=== PATIENT | male | born 1950 | race African-American/Black ===

== ENCOUNTER 2019-06-30 05:30 | Inpatient (IN) | payer MEDICARE ==
--- NOTE | 2019-06-28 15:32 | Diagnostic Imaging Report ---
Chest, PA and lateral. History: Preoperative evaluation for prostate surgery. Comparison: None available. Discussion: The cardiomediastinal silhouette and pulmonary vasculature are within normal limits. The lungs are clear without evidence of consolidation or effusion. There are no acute osseous abnormalities. IMPRESSION: No acute cardiopulmonary abnormality. Signed by: Torrey Gross MD on 06/28/2019 3:28 PM
[2019-06-28 15:33] LABS: BASOPHILS # (AUTO) 0.1 (0.0-0.1); EOSINOPHILS # (AUTO) 0.1 (0.0-0.4); EOSINOPHILS % 1.6 % (0.0-6.0); HEMOGLOBIN 12.2 g/dL (14.0-18.0); LYMPHOCYTES # (AUTO) 2.3 (1.0-3.2); LYMPHOCYTES % 36.5 % (18.0-39.1); MEAN CORPUSCULAR HEMOGLOBIN 31.1 pg (28-32); MEAN CORPUSCULAR HGB CONC 33.9 g/dL (31-35); MEAN CORPUSCULAR VOLUME 91.8 fL (81-99); MONOCYTES # (AUTO) 0.7 (0.2-0.8); MONOCYTES % 11.9 % (4.4-11.3); NEUTROPHILS # (AUTO) 3.1 (2.1-6.9); NEUTROPHILS % 48.8 % (38.7-80.0); PLATELET COUNT 205 x10e3/uL (140-360); RED BLOOD COUNT 3.92 x10e6/uL (4.3-5.7)
[2019-06-28 15:51] LABS: ANION GAP 11.9 mmol/L (8-16); BLOOD UREA NITROGEN 12 mg/dL (7-26); BUN/CREATININE RATIO 11 (6-25); CALCIUM 9.7 mg/dL (8.4-10.2); CARBON DIOXIDE 28 mmol/L (22-29); CHLORIDE 106 mmol/L (98-107); CREATININE, SERUM 1.12 mg/dL (0.72-1.25); EST GLOMERULAR FILTRATION RATE > 60 ML/MIN (60-); GLUCOSE 92 mg/dL (74-118); POTASSIUM 3.9 mmol/L (3.5-5.1); SODIUM 142 mmol/L (136-145)
[~2019-06-30] VITALS: Ht 182.9 cm; Wt 90.7 kg
[2019-06-30] VITALS (12 sets, daily range): BP systolic 104–124; BP diastolic 59–75
[~2019-06-30 05:30] MED LIST: DIOVAN160 MG PO; DOXYCYCLINE HY100 MG PO; FINASTERIDE5 MG PO; FLOMAX0.4 MG PO
--- OUTSIDE RECORDS SUMMARY | 2019-06-30 05:35 | XMS REPORT ---
Author Author [facility] Address Unknown Phone Unavailable Care Team Providers Care Supervising Architect Name Role Phone MT PAPPAS Unavailable Unavailable Problems This patient has no known problems. Allergies, Adverse Reactions, Alerts This patient has no known allergies or adverse reactions. Medications This patient has no known medications. Encounters Start Date/Time End Date/Time Encounter Type Admission Type Attending Clinicians Care Facility Care Department Encounter ID 2019-05-07 20:53:00 2019-05-07 15:47:00 Inpatient [facility] [id number] Results Test Description Test Time Test Comments Text Results Atomic Results Result Comments CHEST 2 VIEWS 2019-06-28 15:28:00 [place] [id number] Patient Name: ALEC GOEL MR #: [id number] : 1950 Age/Sex: 69/M Req #: [id number] Adm Physician: Ordered by: MT PAPPAS MD Report #: [id number] Location: OR Room/Bed: Procedure: [id number] DX/CHEST 2 VIEWS Exam Date: 06/28/19 Exam Time: 1502 REPORT STATUS: Signed Chest, PA and lateral. History: Preoperative evaluation for prostate surgery. Comparison: None available. Discussion: The cardiomediastinal silhouette and pulmonary vasculature are within normal limits. The lungs are clear without evidence of consolidation or effusion. There are no acute osseous abnormalities. IMPRESSION: No acute cardiopulmonary abnormality. Signed by: Torrey Sepulveda MD on 06/28/2019 3:28 PM Dictated By: TORREY SEPLUVEDA MD 1528 Transcribed By: FRANCISCA on 06/28/19 1528 COPY TO: MT PAPPAS MD
[2019-06-30] MEDS ORDERED: VANCOMYCIN 1GM/NS 250 ML 250 ML ONE (06:02)
[2019-06-30] MEDS ORDERED: GENTAMICIN 80MG/NS 100 ML 100 ML IV ONE (06:02)
[2019-06-30] MEDS ORDERED: IOPAMIDOL 300MG/ML 50ML INFUS..BTL IV ONE (06:43)
[2019-06-30] MEDS ORDERED: B&O 60MG R/S 60 MG SUPP PR ONE (06:43)
[2019-06-30] MEDS ORDERED: ACETAMINOPHEN/CODEINE 300MG - 30MG TAB PO PRN (08:30)
[2019-06-30] MEDS ORDERED: DIPHENHYDRAMINE HCL 25 MG CAP PO PRN (08:30)
[2019-06-30] MEDS ORDERED: ACETAMINOPHEN 1000 MG/100 ML IV PRN (08:30)
[2019-06-30] MEDS ORDERED: B&O 60MG R/S 60 MG SUPP PR PRN (08:30)
[2019-06-30] MEDS ORDERED: ONDANSETRON HCL INJ 2MG/ML 2ML 2 MG/ML VIAL IV PRN (08:30)
[2019-06-30 09:07] LABS: BASOPHILS % 0.4 % (0.0-1.0); EOSINOPHILS # (AUTO) 0.1 (0.0-0.4); EOSINOPHILS % 1.5 % (0.0-6.0); HEMATOCRIT 35.9 % (38.2-49.6); HEMOGLOBIN 11.9 g/dL (14.0-18.0); LYMPHOCYTES # (AUTO) 1.7 (1.0-3.2); LYMPHOCYTES % 25.7 % (18.0-39.1); MEAN CORPUSCULAR HEMOGLOBIN 30.9 pg (28-32); MEAN CORPUSCULAR HGB CONC 33.1 g/dL (31-35); MEAN CORPUSCULAR VOLUME 93.2 fL (81-99); MONOCYTES # (AUTO) 0.4 (0.2-0.8); MONOCYTES % 5.6 % (4.4-11.3); NEUTROPHILS # (AUTO) 4.5 (2.1-6.9); NEUTROPHILS % 66.7 % (38.7-80.0); PLATELET COUNT 169 x10e3/uL (140-360); RED BLOOD COUNT 3.85 x10e6/uL (4.3-5.7); RED CELL DISTRIBUTION WIDTH 13.1 % (11.7-14.4)
[2019-06-30 09:35] LABS: ANION GAP 11.8 mmol/L (8-16); BLOOD UREA NITROGEN 13 mg/dL (7-26); BUN/CREATININE RATIO 12 (6-25); CALCIUM 8.7 mg/dL (8.4-10.2); CARBON DIOXIDE 22 mmol/L (22-29); CHLORIDE 109 mmol/L (98-107); CREATININE, SERUM 1.09 mg/dL (0.72-1.25); EST GLOMERULAR FILTRATION RATE > 60 ML/MIN (60-); GLUCOSE 108 mg/dL (74-118); POTASSIUM 3.8 mmol/L (3.5-5.1); SODIUM 139 mmol/L (136-145)
[2019-06-30] MEDS: DOCUSATE SODIUM 100 MG CAP PO SCH ×2 (12:01→16:51)
[2019-06-30] MEDS: PHENAZOPYRIDINE HCL 100 MG TAB PO SCH ×2 (12:01→16:51)
[2019-06-30] MEDS: D5.45%NS/KCL 20MEQ 1,000 ML IV SCH ×2 (12:08→16:51)
[2019-06-30] MEDS: GENTAMICIN 80MG/NS 100 ML 100 ML IV SCH ×2 (14:03→22:00)
[2019-06-30] MEDS ORDERED: PROPOFOL IV EMULSION 10 MG/ML 20 ML VIAL ONE (14:33)
[2019-06-30] MEDS ORDERED: DEXAMETHASONE SOD PHOS INJ 4 MG/ML VIAL ONE (14:33)
[2019-06-30] MEDS ORDERED: SEVOFLURANE INHAL SOLN 250 ML PEN BTL ONE (14:33)
[2019-06-30] MEDS ORDERED: LIDOCAINE HCL 2% LOCAL INJ 5 ML SDV VIAL INJ ONE (14:33)
[2019-06-30] MEDS ORDERED: ONDANSETRON HCL INJ 2MG/ML 2ML 2 MG/ML VIAL ONE (14:33)
[2019-06-30] MEDS ORDERED: FENTANYL CITRATE/PF 100MCG/2 ML INJ ONE (15:17)
[2019-06-30] MEDS ORDERED: MIDAZOLAM HCL 2 MG/2 ML VIAL ONE (15:17)
--- NOTE | 2019-06-30 21:32 | Operative Report ---
DATE OF PROCEDURE: 06/30/2019 SURGEON: Adal Gan MD PREOPERATIVE DIAGNOSES: 1. Obstructive benign prostatic hyperplasia. 2. Urinary tract infections. POSTOPERATIVE DIAGNOSES: 1. Obstructive benign prostatic hyperplasia. 2. Urinary tract infections. OPERATIONS PERFORMED: 1. Cystourethroscopy with bilateral ureteral catheterization and retrograde ureteropyelography (separate procedure performed for the urinary tract infections). 2. Interpretation of retrograde ureteropyelography. 3. Supervision of fluoroscopy, no radiologist present. 4. Cystourethroscopy with transurethral resection of the prostate utilizing the PlasmaBand electrode (separate staged procedure for the patient's severe obstructing benign prostatic hyperplasia). ANESTHESIA: General. COMPLICATIONS: None. CLINICAL SUMMARY: Gil Ivan is a complicated 69-year-old man. He has had a previous prostate biopsy in 2011, which was reportedly negative for cancer. The patient has had urinary retention of 1500 mL, but he did show bladder with signs of bladder function and detrusor contraction on urodynamic study. He is Bolden catheter dependent and despite this keeps having urinary tract infections. The patient was counseled about the fact during the time of coronavirus outbreak. He is at risk for developing a potentially life-threatening infection from the coronavirus. The patient, however, does not want to delay his surgery due to the fact that he has catheter discomfort from his chronic catheter and is concerned about his recurrent infections as well and except the coronavirus risk in order to proceed with surgery as planned. He understands the risks of incontinence, impotence, need for additional procedures and elected to proceed. OPERATIVE PROCEDURE IN DETAIL: Gil Ivan was properly identified, taken to the operating room, placed on the cystoscopy table in supine position. Anesthesia was uneventfully begun. Bolden catheter was removed. He was carefully gently repositioned in dorsal lithotomy position. All pressure points were padded. His genitalia were prepared and draped in usual sterile fashion. The cystoscope sheath with the visual obturator in place was atraumatically inserted into the patient's urethra and was guided down to unremarkable distal urethra through the normal sphincteric region through the prostate bed, which was significant for trilobar prostatic hypertrophy with kissing lateral lobes causing visual obstruction and a small median lobe. Panendoscopy of the bladder revealed trabeculations, but no tumors, no suspicious lesions, and no stones were identified. An 8-[place] catheter was used to cannulate each ureter and retrograde ureteropyelograms were performed. Interpretation of retrograde ureteropyelography contrast was instilled in retrograde fashion bilaterally. Again, there were no tumors, no stones, no diverticula. Unobstructed drainage was observed bilaterally fluoroscopically. Bilateral J hooking was noted. The resectoscope was atraumatically placed with obturator in place. We then utilized the PlasmaBand electrode to perform transurethral resection of the prostate. First, we limited the median lobe, then we worked on both lateral lobes from the bladder neck to maneuver past the verumontanum and down the surgical capsule. Multiple pockets of pus and purulent material were unroofed and irrigated free. This patient has rather severe chronic prostatitis and basically surgical findings. I must concur with the patient's decision of proceeding with surgery today despite the coronavirus outbreak. Pinpoint electrocautery was utilized to achieve hemostasis. All chips were evacuated, this was verified endoscopically. A continuous irrigation Bolden catheter was placed, irrigated to and fro to ensure it worked properly and placed in continuous irrigation with relatively clear efflux. A belladonna opium suppository was placed revealing a 50 g prostate, that was diffusely firm and exhibited diffuse nonspecific irregularity. No specific nodule could be palpated. The patient was then uneventfully reversed from anesthesia and taken to recovery room in stable condition. No complications to the procedure. He tolerated the procedure well. Will admit the patient for intravenous antibiotics. Postoperative care with irrigation and we will monitor his situation. Thankfully, the patient's hydronephrosis that was present upon his last urinary retention episode by CT has improved. Adal Gan MD OH/MODL /[id number]
[2019-07-01] VITALS (8 sets, daily range): BP systolic 111–139; BP diastolic 66–88
[2019-07-01] MEDS: D5.45%NS/KCL 20MEQ 1,000 ML IV SCH ×3 (01:19→16:27)
[2019-07-01] MEDS: GENTAMICIN 80MG/NS 100 ML 100 ML IV SCH ×3 (05:59→21:21)
--- NOTE | 2019-07-01 07:20 | NUR ---
RECEIVED PATIENT RESTING IN BED NO S/S OF DISTRESS. BED LOW, WHEELS LOCKED, SIDE RAILS X2. CALL LIGHT IN REACH WILL CONTINUE TO MONITOR PATIENT.
[2019-07-01] MEDS ORDERED: DOCUSATE SODIUM 100 MG CAP PO PRN (07:30)
--- NOTE | 2019-07-01 07:30 | NUR ---
H&P cc: urinary retention HPI: 69yoM, PCP , with urine retention due to BPH, here for elective TURP. Underwent procedure, recovering; PMH: BPH, urinary retention, HTN PSHx: hand Allergies; see emr FH/SH; ; no cigs meds; see MAR ROS: no f/c/s/N/V/D/CONLEY/cp/sob/skin rash/back pain/vision changes/focal limb weakness v/s; revd PE tired appearing anicteric ns1s2 mod bs soft nt nd no e/t skin dry n. affect a&ox3; mckeon labs/meds revd A/P: Urinary retention- s/p TURP BPH- s/p TURP HTN- home meds Overweight- caloric rescrition BMI 27.1- as above Prop:scd dispo: Glenn Green MD, PHD.
[2019-07-01 07:55] LABS: BASOPHILS % 0.4 % (0.0-1.0); EOSINOPHILS # (AUTO) 0.1 (0.0-0.4); EOSINOPHILS % 0.7 % (0.0-6.0); HEMATOCRIT 35.6 % (38.2-49.6); LYMPHOCYTES # (AUTO) 1.3 (1.0-3.2); LYMPHOCYTES % 19.4 % (18.0-39.1); MEAN CORPUSCULAR HEMOGLOBIN 30.8 pg (28-32); MEAN CORPUSCULAR HGB CONC 33.7 g/dL (31-35); MEAN CORPUSCULAR VOLUME 91.5 fL (81-99); MONOCYTES # (AUTO) 0.6 (0.2-0.8); MONOCYTES % 9.2 % (4.4-11.3); NEUTROPHILS # (AUTO) 4.7 (2.1-6.9); PLATELET COUNT 176 x10e3/uL (140-360); RED BLOOD COUNT 3.89 x10e6/uL (4.3-5.7)
[2019-07-01 08:13] LABS: BLOOD UREA NITROGEN 10 mg/dL (7-26); BUN/CREATININE RATIO 9 (6-25); CALCIUM 8.1 mg/dL (8.4-10.2); CARBON DIOXIDE 25 mmol/L (22-29); CHLORIDE 108 mmol/L (98-107); CREATININE, SERUM 1.07 mg/dL (0.72-1.25); EST GLOMERULAR FILTRATION RATE > 60 ML/MIN (60-); GLUCOSE 100 mg/dL (74-118); SODIUM 137 mmol/L (136-145)
[2019-07-01] MEDS: VALSARTAN 160 MG TAB PO SCH (09:00)
[2019-07-01] MEDS: FAMOTIDINE 20 MG TAB PO SCH ×2 (09:17→16:40)
[2019-07-01] MEDS: TAMSULOSIN HCL 0.4 MG CAP PO SCH (09:17)
[2019-07-01] MEDS: DOCUSATE SODIUM 100 MG CAP PO SCH ×2 (09:17→16:40)
[2019-07-01] MEDS: FINASTERIDE 5 MG TAB PO SCH (09:17)
[2019-07-01] MEDS: PHENAZOPYRIDINE HCL 100 MG TAB PO SCH ×3 (09:17→17:03)
--- NOTE | 2019-07-01 09:20 | NUR ---
ASSESSMENT: Spiritual concern Pt hopeful for improved health following procedure. Intervention: Provided hospitality, empathic listening and prayer. Provided information on how to reach special delivery clerk, if needed. Outcome: No need to follow at this time. PATIENCE CASTANEDA Director [facility] O: [phone]
--- NOTE | 2019-07-01 11:47 | NUR ---
NOTIFIED DR. PAPPAS OF PATIENTS TEMPERATURE 100.5, NEW ORDER FOR URINE CULTURE. NEW ORDERS IMPLEMENTED.
[2019-07-01] MEDS: ACETAMINOPHEN 325 MG TAB PO PRN (12:08)
[2019-07-01] MEDS ORDERED: ZOLPIDEM TARTRATE 5 MG TAB PO PRN (21:00)
[2019-07-02] VITALS (8 sets, daily range): BP systolic 112–143; BP diastolic 67–83
[2019-07-02] MEDS: D5.45%NS/KCL 20MEQ 1,000 ML IV SCH ×3 (00:27→16:27)
[2019-07-02] MEDS: GENTAMICIN 80MG/NS 100 ML 100 ML IV SCH ×3 (05:36→21:19)
[2019-07-02 06:38] LABS: BASOPHILS % 0.8 % (0.0-1.0); EOSINOPHILS # (AUTO) 0.1 (0.0-0.4); HEMATOCRIT 33.9 % (38.2-49.6); HEMOGLOBIN 11.6 g/dL (14.0-18.0); LYMPHOCYTES # (AUTO) 1.5 (1.0-3.2); LYMPHOCYTES % 30.7 % (18.0-39.1); MEAN CORPUSCULAR HEMOGLOBIN 31.2 pg (28-32); MEAN CORPUSCULAR HGB CONC 34.2 g/dL (31-35); MEAN CORPUSCULAR VOLUME 91.1 fL (81-99); MONOCYTES # (AUTO) 0.7 (0.2-0.8); MONOCYTES % 14.8 % (4.4-11.3); NEUTROPHILS # (AUTO) 2.4 (2.1-6.9); NEUTROPHILS % 50.3 % (38.7-80.0); PLATELET COUNT 170 x10e3/uL (140-360); RED BLOOD COUNT 3.72 x10e6/uL (4.3-5.7); RED CELL DISTRIBUTION WIDTH 12.9 % (11.7-14.4)
--- NOTE | 2019-07-02 06:58 | NUR ---
IM- progress note O/N see below ROS: no f/c/s/N/V/D/CONLEY/cp/sob/skin rash/back pain/vision changes/focal limb weakness v/s; revd PE tired appearing anicteric ns1s2 mod bs soft nt nd no e/t skin dry n. affect a&ox3; mckeon labs/meds revd A/P: Urinary retention- s/p TURP BPH- s/p TURP HTN- home meds Overweight- caloric rescrition BMI 27.1- as above Prop:scd dispo: 3-27 labs ok; Glenn Green MD, PHD.
[2019-07-02 07:05] LABS: BLOOD UREA NITROGEN 8 mg/dL (7-26); BUN/CREATININE RATIO 7 (6-25); CALCIUM 8.2 mg/dL (8.4-10.2); CARBON DIOXIDE 27 mmol/L (22-29); CHLORIDE 109 mmol/L (98-107); CREATININE, SERUM 1.12 mg/dL (0.72-1.25); EST GLOMERULAR FILTRATION RATE > 60 ML/MIN (60-); GLUCOSE 99 mg/dL (74-118); POTASSIUM 4.2 mmol/L (3.5-5.1); SODIUM 137 mmol/L (136-145)
[2019-07-02 07:08] LABS: ANION GAP 5.2 mmol/L (8-16)
[2019-07-02] MEDS: FAMOTIDINE 20 MG TAB PO SCH ×2 (08:30→17:37)
[2019-07-02] MEDS: PHENAZOPYRIDINE HCL 100 MG TAB PO SCH ×3 (09:00→17:37)
[2019-07-02] MEDS: FINASTERIDE 5 MG TAB PO SCH (09:00)
[2019-07-02] MEDS: TAMSULOSIN HCL 0.4 MG CAP PO SCH (09:00)
[2019-07-02] MEDS: VALSARTAN 160 MG TAB PO SCH (09:00)
[2019-07-02] MEDS: DOCUSATE SODIUM 100 MG CAP PO SCH ×2 (09:00→17:37)
[2019-07-02] MEDS ORDERED: ONDANSETRON HCL 4 MG ORAL DISINTEGRATING TAB PO PRN (09:45)
--- NOTE | 2019-07-02 10:33 | NUR ---
MD PAPPAS INTO SEE PT, DISCUSSED POC, AWARE OF CURRENT TEMP 100.2F, ORDERS NOTED
[2019-07-02] MEDS: VANCOMYCIN 1GM/NS 250 ML 250 ML IV SCH ×2 (11:45→23:52)
--- NOTE | 2019-07-02 11:48 | NUR ---
JUNG DC'D PER MD ORDER, PT TOLERATED WELL, PT AWARE TO CALL NURSE AFTER VOIDS SO ABLE TO COLLECT FOR SERIAL URINE PER MD ORDER
--- NOTE | 2019-07-02 14:00 | NUR ---
PT WHEELED OFF UNIT VIA WC FOR CHEST XRAY, NO CHANGE IN CONDITION
--- NOTE | 2019-07-02 14:42 | NUR ---
BACK IN ROOM, NO URGE TO VOID AT THIS TIME, CALL LIGHT WITHIN REACH
--- NOTE | 2019-07-02 15:09 | Diagnostic Imaging Report ---
EXAMINATION: CHEST 2 VIEWS INDICATION: Postoperative COMPARISON: Chest radiograph 06/28/2019 FINDINGS: LINES/TUBES:None LUNGS:The lungs are well-inflated. No focal consolidation or pulmonary edema. Left basilar subsegmental atelectasis. PLEURA:No pleural effusion or pneumothorax. MEDIASTINUM:The cardiomediastinal silhouette appears normal in size and shape. BONES/SOFT TISSUES:No acute osseous injury. ABDOMEN:No free air under the diaphragm. IMPRESSION: No focal pneumonia or pulmonary edema. Left basilar subsegmental atelectasis. Signed by: Troy Rojas MD on 07/02/2019 3:06 PM
--- NOTE | 2019-07-02 16:49 | NUR ---
SPOKE WITH DR Joan PAPPAS , MADE AWARE OF CURRENT TEMP 101.6F, THAT PT HAS NOT VOIDED, BLADDER SCANNER REPORTS 340-460ML, AND THAT PT IS HAVING BLADDER SPASMS, B&O SUPP GIVEN, ORDERS NOTED FOR ABOVE, TELEPHONED LAB, MADE AWARE OF NEED FOR BLOOD CULTURES NOW
--- NOTE | 2019-07-02 18:10 | NUR ---
20FR COUDE PLACED PER MD ORDER BY ALTO SINGER, 500ML DARK ORANGE SCANT BLOOD TINGED URINE DRAINED UPON INSERTION, PT TOLERATED WELL, CALL LIGHT WITHIN REACH
[2019-07-03] VITALS (9 sets, daily range): BP systolic 111–133; BP diastolic 62–79
[2019-07-03] MEDS: D5.45%NS/KCL 20MEQ 1,000 ML IV SCH ×4 (00:27→21:05)
[2019-07-03] MEDS: ACETAMINOPHEN 325 MG TAB PO PRN ×2 (04:55→07:42)
[2019-07-03 05:41] LABS: BASOPHILS % 0.7 % (0.0-1.0); EOSINOPHILS # (AUTO) 0.2 (0.0-0.4); EOSINOPHILS % 2.9 % (0.0-6.0); HEMATOCRIT 31.9 % (38.2-49.6); HEMOGLOBIN 10.9 g/dL (14.0-18.0); LYMPHOCYTES # (AUTO) 2.1 (1.0-3.2); LYMPHOCYTES % 37.4 % (18.0-39.1); MEAN CORPUSCULAR HEMOGLOBIN 30.9 pg (28-32); MEAN CORPUSCULAR HGB CONC 34.2 g/dL (31-35); MEAN CORPUSCULAR VOLUME 90.4 fL (81-99); MONOCYTES % 18.1 % (4.4-11.3); NEUTROPHILS # (AUTO) 2.2 (2.1-6.9); NEUTROPHILS % 40.5 % (38.7-80.0); PLATELET COUNT 143 x10e3/uL (140-360); RED BLOOD COUNT 3.53 x10e6/uL (4.3-5.7); RED CELL DISTRIBUTION WIDTH 12.8 % (11.7-14.4)
[2019-07-03] MEDS: GENTAMICIN 80MG/NS 100 ML 100 ML IV SCH (06:17)
[2019-07-03 06:30] LABS: BLOOD UREA NITROGEN 9 mg/dL (7-26); BUN/CREATININE RATIO 9 (6-25); CALCIUM 8.2 mg/dL (8.4-10.2); CARBON DIOXIDE 26 mmol/L (22-29); CHLORIDE 109 mmol/L (98-107); CREATININE, SERUM 1.03 mg/dL (0.72-1.25); EST GLOMERULAR FILTRATION RATE > 60 ML/MIN (60-); GLUCOSE 111 mg/dL (74-118); SODIUM 139 mmol/L (136-145)
--- NOTE | 2019-07-03 06:57 | NUR ---
IM- progress note O/N see below ROS: no f/c/s/N/V/D/CONLEY/cp/sob/skin rash/back pain/vision changes/focal limb weakness v/s; revd PE tired appearing anicteric ns1s2 mod bs soft nt nd no e/t skin dry n. affect a&ox3; mckeon labs/meds revd A/P: Urinary retention- s/p TURP BPH- s/p TURP HTN- home meds Overweight- caloric rescrition BMI 27.1- as above Prop:scd dispo: 3 labs ok; 3- pt remains on vanco/gent Glenn Green MD, PHD.
[2019-07-03] MEDS: FAMOTIDINE 20 MG TAB PO SCH ×2 (08:30→16:14)
[2019-07-03] MEDS: VALSARTAN 160 MG TAB PO SCH (09:00)
[2019-07-03] MEDS: DOCUSATE SODIUM 100 MG CAP PO SCH ×2 (09:00→16:14)
[2019-07-03] MEDS: PHENAZOPYRIDINE HCL 100 MG TAB PO SCH ×3 (09:00→17:12)
[2019-07-03] MEDS: FINASTERIDE 5 MG TAB PO SCH (09:00)
[2019-07-03] MEDS: TAMSULOSIN HCL 0.4 MG CAP PO SCH (09:00)
[2019-07-03] MEDS: VANCOMYCIN 1GM/NS 250 ML 250 ML IV SCH ×2 (12:00→22:53)
[2019-07-03] MEDS: PIPER-TAZ 3.375 GM 50 ML IV SCH ×2 (15:00→21:04)
[2019-07-04] VITALS (9 sets, daily range): BP systolic 102–147; BP diastolic 57–76
--- NOTE | 2019-07-04 05:37 | NUR ---
IM- progress note O/N see below ROS: no f/c/s/N/V/D/CONLEY/cp/sob/skin rash/back pain/vision changes/focal limb weakness v/s; revd PE tired appearing anicteric ns1s2 mod bs soft nt nd JUNG no e/t skin dry n. affect a&ox3; mckeon labs/meds revd A/P: Urinary retention- s/p TURP BPH- s/p TURP HTN- home meds Overweight- caloric rescrition BMI 27.1- as above Prop:scd dispo: 07-01 labs ok; 07-02 pt remains on vanco/gent 3- on abx; no leukocytosis; all cx negative.FUngemia? give 1 dose diflucan; d/c planning; Glenn Green MD, PHD.
[2019-07-04] MEDS: PIPER-TAZ 3.375 GM 50 ML IV SCH (06:00)
[2019-07-04 06:34] LABS: BASOPHILS % 0.7 % (0.0-1.0); EOSINOPHILS # (AUTO) 0.3 (0.0-0.4); EOSINOPHILS % 5.5 % (0.0-6.0); HEMOGLOBIN 10.3 g/dL (14.0-18.0); MEAN CORPUSCULAR HEMOGLOBIN 30.3 pg (28-32); MEAN CORPUSCULAR HGB CONC 33.2 g/dL (31-35); MEAN CORPUSCULAR VOLUME 91.2 fL (81-99); MONOCYTES % 17.7 % (4.4-11.3); NEUTROPHILS # (AUTO) 2.1 (2.1-6.9); NEUTROPHILS % 38.7 % (38.7-80.0); PLATELET COUNT 156 x10e3/uL (140-360); RED CELL DISTRIBUTION WIDTH 12.7 % (11.7-14.4)
[2019-07-04 07:03] LABS: ANION GAP 8.9 mmol/L (8-16); BLOOD UREA NITROGEN 9 mg/dL (7-26); BUN/CREATININE RATIO 8 (6-25); CALCIUM 8.7 mg/dL (8.4-10.2); CARBON DIOXIDE 27 mmol/L (22-29); CHLORIDE 107 mmol/L (98-107); CREATININE, SERUM 1.15 mg/dL (0.72-1.25); EST GLOMERULAR FILTRATION RATE > 60 ML/MIN (60-); GLUCOSE 99 mg/dL (74-118); POTASSIUM 3.9 mmol/L (3.5-5.1); SODIUM 139 mmol/L (136-145)
[2019-07-04] MEDS ORDERED: LOSARTAN POTAS100 MG PO (08:31)
[2019-07-04] MEDS: VALSARTAN 160 MG TAB PO SCH (09:00)
--- NOTE | 2019-07-04 09:10 | NUR ---
Received the patient in report. lyeing in the bed.stable condition.iv fluid running.
[2019-07-04] MEDS: TAMSULOSIN HCL 0.4 MG CAP PO SCH (10:16)
[2019-07-04] MEDS: FINASTERIDE 5 MG TAB PO SCH (10:16)
[2019-07-04] MEDS: PHENAZOPYRIDINE HCL 100 MG TAB PO SCH ×3 (10:16→18:00)
[2019-07-04] MEDS: FAMOTIDINE 20 MG TAB PO SCH ×2 (10:16→16:30)
[2019-07-04] MEDS: DOCUSATE SODIUM 100 MG CAP PO SCH ×2 (10:17→17:00)
[2019-07-04] MEDS: D5.45%NS/KCL 20MEQ 1,000 ML IV SCH ×2 (10:17→16:27)
--- NOTE | 2019-07-04 10:30 | NUR ---
MD FLORES INTO SEE PT, DISCUSSED POC, PT VERBALIZED UNDERSTANDING
[2019-07-04] MEDS: VANCOMYCIN 1GM/NS 250 ML 250 ML IV SCH (11:43)
--- NOTE | 2019-07-04 11:54 | NUR ---
TELEPHONED MD BEAR TO MAKE AWARE THAT MD FLORES HAS GIVEN OKAY TO DISCHARGE FROM HIS STANDPOINT, AWAITING CALL BACK
--- NOTE | 2019-07-04 12:45 | NUR ---
SPOKE WITH DR BEAR, ORDERS NOTED, NO DC AT THIS TIME
--- NOTE | 2019-07-04 14:00 | NUR ---
REPORT RECEIVED FROM KENISHA LUCERO WALKING ROUNDS COMPLETE.
[2019-07-04] MEDS: DOXYCYCLINE HYCLATE TABLET 100 MG TAB PO SCH (17:00)
[2019-07-04] MEDS: FLUCONAZOLE 100 MG/NS 50 ML 50 ML IV SCH (19:28)
--- NOTE | 2019-07-04 19:37 | NUR ---
REPORT GIVEN TO ONCOMING NURSE, WALKING ROUNDS COMPLETE.
[2019-07-04] MEDS: ACETAMINOPHEN 325 MG TAB PO PRN (20:43)
--- NOTE | 2019-07-04 22:00 | NUR ---
Assessment done.no resp.distress.no pain voiced.klein care given.bed locked and lowest position.phone and call light within reach.instructed to call for assistance as needed.
[2019-07-05] MEDS: D5.45%NS/KCL 20MEQ 1,000 ML IV SCH ×3 (03:27→18:33)
[2019-07-05 03:58] VITALS: BP 130/71
--- NOTE | 2019-07-05 06:56 | NUR ---
Bed side shift report given to oncoming RN.stable condition.
--- NOTE | 2019-07-05 07:00 | NUR ---
RECEIVED PATIENT AWAKE RESTING IN BED NO S/S OF DISTRESS. BED LOW, WHEELS LOCKED, SIDE RAILS X2. CALL LIGHT IN REACH WILL CONTINUE TO MONITOR PATIENT.
--- NOTE | 2019-07-05 07:21 | NUR ---
IM- progress note O/N see below ROS: no f/c/s/N/V/D/CONLEY/cp/sob/skin rash/back pain/vision changes/focal limb weakness v/s; revd PE tired appearing anicteric ns1s2 mod bs soft nt nd JUNG no e/t skin dry n. affect a&ox3; mckeon labs/meds revd A/P: Urinary retention- s/p TURP BPH- s/p TURP HTN- home meds Overweight- caloric rescrition BMI 27.1- as above Prop:scd dispo: 07-01 labs ok; 07-02 pt remains on vanco/gent 07-03 on abx; no leukocytosis; all cx negative.Fungemia? give 1 dose diflucan; d/c planning; 07-04 final culture-Bacteremia? check 2D echo. Glenn Green MD, PHD.
[2019-07-05 08:12] VITALS: BP 119/77
[2019-07-05] MEDS: VALSARTAN 160 MG TAB PO SCH (09:00)
[2019-07-05 09:07] VITALS: BP 119/77
[2019-07-05] MEDS: PHENAZOPYRIDINE HCL 100 MG TAB PO SCH ×3 (09:07→17:52)
[2019-07-05] MEDS: FINASTERIDE 5 MG TAB PO SCH (09:07)
[2019-07-05] MEDS: TAMSULOSIN HCL 0.4 MG CAP PO SCH (09:07)
[2019-07-05] MEDS: FAMOTIDINE 20 MG TAB PO SCH ×2 (09:07→17:52)
[2019-07-05] MEDS: DOCUSATE SODIUM 100 MG CAP PO SCH ×2 (09:07→17:52)
[2019-07-05] MEDS: DOXYCYCLINE HYCLATE TABLET 100 MG TAB PO SCH ×2 (09:07→17:52)
[2019-07-05 11:48] VITALS: BP 105/60
--- NOTE | 2019-07-05 15:17 | NUR ---
DR. PAPPAS ROUNDING ON PATIENT. WANTS TO HOLD PATIENTS DISCHARGE UNTIL FINAL BLOOD CULTURES ARE BACK.
--- NOTE | 2019-07-05 16:42 | NUR ---
PATIENT AMBULATING IN HALLWAY. STEADY GAIT, NO S/S OF DISTRESS.
[2019-07-05] MEDS: FLUCONAZOLE 100 MG/NS 50 ML 50 ML IV SCH (17:52)
--- NOTE | 2019-07-05 19:00 | NUR ---
RECEIVED PATIENT IN BEDSIDE SHIFT REPORT. PATIENT AMBULATING IN ROOM. NO PAIN REPORTED. NO S&S OF DISTRESS NOTED. JUNG DRAINING CLEAR, ORANGE URINE. IV RUNNING [id number] AT 125ML/HR. BED LOCKED IN LOWEST POSITION, SIDE RAILS UPX2, CALL LIGHT IN REACH.
[2019-07-05 20:23] VITALS: BP 108/67
[2019-07-05 20:26] VITALS: BP 108/67
[2019-07-06 00:31] VITALS: BP 132/82
[2019-07-06 04:11] VITALS: BP 124/77
[2019-07-06] MEDS: D5.45%NS/KCL 20MEQ 1,000 ML IV SCH ×2 (04:55→08:27)
--- NOTE | 2019-07-06 05:16 | NUR ---
D/C summary Principal Dx: Urinary retention- s/p TURP Paulina albicans bacteremia- diflucan BPH- s/p TURP Secondary Dx: HTN- home meds Overweight- caloric rescrition BMI 27.1- as above Prop:scd dispo: 07-01 labs ok; 07-02 pt remains on vanco/gent 07-03 on abx; no leukocytosis; all cx negative.Fungemia? give 1 dose diflucan; d/c planning; 07-04 final culture-Bacteremia? check 2D echo. 07-05 f/u cx d/c home f/u PCP 1 week and urology 1 week stable d/c>35mins Glenn Green MD, PHD.
--- NOTE | 2019-07-06 07:00 | NUR ---
RECEIVED PATIENT AWAKE RESTING IN BED NO S/S OF DISTRESS. BED LOW, WHEELS LOCKED, SIDE RAILS X2. CALL LIGHT IN REACH WILL CONTINUE TO MONITOR PATIENT.
[2019-07-06] MEDS: VALSARTAN 160 MG TAB PO SCH (08:14)
[2019-07-06 08:31] VITALS: BP 141/69
[2019-07-06 08:32] VITALS: BP 141/69
[2019-07-06] MEDS: DOXYCYCLINE HYCLATE TABLET 100 MG TAB PO SCH (08:45)
[2019-07-06] MEDS: PHENAZOPYRIDINE HCL 100 MG TAB PO SCH (08:45)
[2019-07-06] MEDS: FINASTERIDE 5 MG TAB PO SCH (08:45)
[2019-07-06] MEDS: DOCUSATE SODIUM 100 MG CAP PO SCH (08:45)
[2019-07-06] MEDS: TAMSULOSIN HCL 0.4 MG CAP PO SCH (08:45)
[2019-07-06] MEDS: FAMOTIDINE 20 MG TAB PO SCH (08:45)
--- NOTE | 2019-07-06 09:17 | NUR ---
DR. PAPPAS ROUNDING ON PATIENT. PATIENT OK TO BE DISCHARGED FROM HIS STANDPOINT AND NEEDS TO FOLLOW UP IN 2 WEEKS.
[2019-07-06] MEDS ORDERED: DIFLUCAN100 MG PO (09:50)
[2019-07-06] MEDS ORDERED: TYLENOL WITH C1 EACH PO (09:50)
--- NOTE | 2019-07-06 10:56 | NUR ---
JUNG BAG SWITCHED TO LEG BAG AND EDUCATION PROVIDED TO PATIENT. PATIENT VERBALIZED UNDERSTANDING OF JUNG EDUCATION.
--- NOTE | 2019-07-06 11:18 | NUR ---
REMOVED PATIENTS IV. CATHETER TIP INTACT AND PRESSURE DRESSING APPLIED.
[2019-07-06 11:51] VITALS: BP 141/82
--- NOTE | 2019-07-06 12:33 | NUR ---
PATIENT DISCHARGED FROM FACILITY. PATIENT GATHERED ALL PERSONAL BELONGINGS, DISCHARGE INSTRUCTIONS GIVEN TO PATIENT. NO S/S OF DISTRESS WHEN LEAVING FACILITY.
== END 2019-07-06 12:33 | disposition home or self-care (01) | DRG 713 ==
LOC: OR 05:30 → INTOOBSV 09:25 → PACU V 09:25 → MED/SURG 10:15 → OBSVTOIN 07-02 10:24
PROVIDERS: ADMIT Internal Medicine; ATTEND Internal Medicine
PROC: BT141ZZ Fluoroscopy of Kidneys, Ureters and Bladder using Low Osmolar Contrast (ICD-10-PCS; 2019-06-30)
PROC: 0VT08ZZ Resection of Prostate, Via Natural or Artificial Opening Endoscopic (ICD-10-PCS; principal; 2019-06-30 07:00)
PROC: 0T788ZZ Dilation of Bilateral Ureters, Via Natural or Artificial Opening Endoscopic (ICD-10-PCS; 2019-06-30 07:00)
DX: N40.1 Benign prostatic hyperplasia with lower urinary tract symptoms (principal); N13.30 Unspecified hydronephrosis; R33.8 Other retention of urine; R39.14 Feeling of incomplete bladder emptying; N32.81 Overactive bladder; K42.9 Umbilical hernia without obstruction or gangrene; N43.40 Spermatocele of epididymis, unspecified; N50.0 Atrophy of testis; I10 Essential (primary) hypertension; E66.3 Overweight; Z68.27 Body mass index [BMI] 27.0-27.9, adult
CPT/HCPCS: 36415; 71046; 74420; 80048; 80170; 80202; 83735; 85025; 87040; 87071; 87086; 87205; 88305; 93005; 93306; 96361; G0378; J1100; J1450; J1580; J2001; J2250; J2405; J2543; J3010; J3370